=== PATIENT | female | born 1985 | race Caucasian/White ===

== ENCOUNTER 2017-07-02 14:35 | Emergency (ER) | payer BC ==
[2017-07-02 15:28] VITALS: BP 133/73
--- NOTE | 2017-07-02 15:30 | UC ---
Respiratory Complaint HPI - HPI Summary HPI Summary: 6 days of bronchial cough, fatigue, no real fevers, coughing hurts center of chest - History of Current Complaint Chief Complaint: UCRespiratory Stated Complaint: COUGH Time Seen by Provider: 07/02/17 15:23 Hx Obtained From: Patient Hx Last Menstrual Period: ON DEPO, DOES NOT HAVE REG PERIODS ?: No Onset/Duration: Gradual Onset, Lasting Days - 6, Still Present Timing: Constant Severity Initially: Moderate Severity Currently: Moderate Character: Cough: Nonproductive Aggravating Factors: Nothing Alleviating Factors: Nothing Associated Signs And Symptoms: Positive: Chills, Pleuritic Chest Pain, URI - Allergies/Home Medications Allergies/Adverse Reactions: Allergies Allergy/AdvReac Type Severity Reaction Status Date / Time No Known Allergies Allergy Verified 07/02/17 15:28 Home Medications: Home Medications Etonogestrel [Nexplanon] 07/02/17 [History] PMH/Surg Hx/FS Hx/Imm Hx Previously Healthy: No Psychological History: Depression - Surgical History Surgical History: Yes Surgery Procedure, Year, and Place: Appy and bariatric surgery 11/2011 - Family History Known Family History: Positive: Diabetes Negative: Cardiac Disease, Hypertension - Social History Occupation: Employed Full-time Lives: With Family Alcohol Use: Rare Substance Use Type: None Smoking Status (MU): Light Every Day Tobacco Smoker Amount Used/How Often: / PPD Cessation Counseling: Patient Advised to Stop Review of Systems Constitutional: Chills, Fatigue Skin: Negative Eyes: Negative ENT: Sore Throat, Nasal Discharge Respiratory: Cough Cardiovascular: Negative Gastrointestinal: Negative Genitourinary: Negative Motor: Negative Neurovascular: Negative Musculoskeletal: Negative Neurological: Negative Psychological: Negative Is Patient Immunocompromised?: No All Other Systems Reviewed And Are Negative: Yes Physical Exam Triage Information Reviewed: Yes Appearance: Well-Appearing, No Pain Distress, Well-Nourished Vital Signs Reviewed: Yes Eye Exam: Normal Eyes: Positive: Conjunctiva Clear ENT Exam: Normal ENT: Positive: Normal ENT inspection, Hearing grossly normal, Pharynx normal, Nasal congestion, TMs normal, Uvula midline. Negative: Nasal drainage, Trismus , Muffled voice, Hoarse voice, Dental tenderness, Sinus tenderness Dental Exam: Normal Neck exam: Normal Neck: Positive: Supple, Nontender, No Lymphadenopathy Respiratory Exam: Normal Respiratory: Positive: Chest non-tender, Lungs clear, Normal breath sounds, No respiratory distress, No accessory muscle use Cardiovascular Exam: Normal Cardiovascular: Positive: RRR, No Murmur, Pulses Normal, Brisk Capillary Refill Musculoskeletal Exam: Normal Musculoskeletal: Positive: Strength Intact, ROM Intact, No Edema Neurological Exam: Normal Neurological: Positive: Alert, Muscle Tone Normal Psychological Exam: Normal Skin Exam: Normal Respiratory Course/Dx - Course Course Of Treatment: increase fluids tessalon, zithromax follow with pcp prn - Differential Dx/Diagnosis Provider Diagnoses: Bronchitis Discharge - Discharge Plan Condition: Stable Disposition: HOME Prescriptions: Azithromycin TAB* [Zithromax TAB (Z-SATNAM) 250 mg #6 tabs] 2 tab PO .TODAY, THEN 1 DAILY #1 satnam Benzonatate CAP* [Tessalon 100 MG CAP*] 100 mg PO TID PRN #30 cap PRN Reason: Cough Patient Education Materials: Acute Bronchitis (ED) Referrals: Ju Araiza MD [Primary Care Provider] - If Needed
== END 2017-07-02 15:54 | disposition home or self-care (01) ==
LOC: UCCORT 14:35
DX: J40 Bronchitis, not specified as acute or chronic (principal)
CPT/HCPCS: 99212; G0463

== ENCOUNTER 2017-08-05 15:10 | Emergency (ER) | payer BC ==
[2017-08-05 16:01] VITALS: BP 153/107
[2017-08-05] MEDS ORDERED: diPHENhydraMINE PO* 25 MG PO ONE (16:45)
[2017-08-05] MEDS ORDERED: Ketorolac INJ* 30 MG/ML 1 ML VIAL IM ONE (16:45)
[2017-08-05] MEDS ORDERED: Prochlorperazine TAB* 10 MG PO ONE (16:45)
[2017-08-05] MEDS ORDERED: Metoclopramide TAB* 10 MG PO ONE (16:49)
--- NOTE | 2017-08-05 16:57 | UC ---
Vandana Carson Julia, scribed for Erich Arce MD on 08/05/17 at 1641 . Headache HPI - HPI Summary HPI Summary: This patient is a 31 year old F presenting to [facility] [place] with a chief complaint of constant occipital migraine since 08/02/17. She reports mild posterior neck pain. Patient denies this is her worst headache, vision changes or fever. The patient rates the pain 9/10 in severity. Symptoms aggravated by lights and neck extension. Patient states symptoms are similar to previous migraines. Has not found an oral medication that relieves these symptoms. Previous use of IV cocktails have worked. - History Of Current Complaint Chief Complaint: UCHeadache Stated Complaint: HEADACHE Time Seen by Provider: 08/05/17 16:29 Hx Obtained From: Patient Hx Last Menstrual Period: unknown Onset/Duration: Gradual Onset, Lasting Days Onset Of Symptoms: Gradual, Still Present Currently Pain Is: Current Pain Scale(0-10)= - 9 Pain Intensity: 9 Pain Scale Used: 0-10 Numeric Timing: Constant Location of Headache: Occipital Aggravating Factor(s): Bright Lights, Other - neck extension Allevating Factor(s): Nothing Associated Signs And Symptoms: Positive: Negative - Allergies/Home Medications Allergies/Adverse Reactions: Allergies Allergy/AdvReac Type Severity Reaction Status Date / Time No Known Allergies Allergy Verified 08/05/17 15:54 Home Medications: Home Medications Acetaminophen [Acetaminophen Extra Strength] 1,000 mg PO ONCE 08/05/17 [History Confirmed 08/05/17] PMH/Surg Hx/FS Hx/Imm Hx - Additional Past Medical History Additional PMH: Patient denies . She states she has Nexplanon implant. Previously Healthy: Yes - Surgical History Surgical History: Yes Surgery Procedure, Year, and Place: Appy and bariatric surgery 11/2011 - Family History Known Family History: Positive: Diabetes Negative: Cardiac Disease, Hypertension - Social History Alcohol Use: Occasionally Substance Use Type: None Smoking Status (MU): Light Every Day Tobacco Smoker Amount Used/How Often: 1/4 PPD - Immunization History Most Recent Influenza Vaccination: none Review of Systems Constitutional: Negative Eyes: Negative Neurological: Headache All Other Systems Reviewed And Are Negative: Yes Physical Exam Triage Information Reviewed: Yes Vital Signs: Initial Vital Signs Temp 98.6 F 08/05/17 15:56 Pulse 72 08/05/17 15:56 Resp 14 08/05/17 15:56 BP 153/107 08/05/17 15:56 Pulse Ox 100 08/05/17 15:56 Vital Signs Reviewed: Yes - Additional Comments Appearance: Well-appearing, Well-nourished Skin: Warm Neck: Supple, nontender, Neurological: Normal, A&Ox3, negative Hardings and Brudzinskis test General: No acute distress Headache Course/Dx - Course Course Of Treatment: given 1 dose of meds and prescription for short course, instructed to use caution taking meds together with her home Prozac. Also instrcuted to fu with neurologist within 1 week for further mgmt of mirgraines. no neuro def. agrees to and understands dc instructions. - Differential Dx/Diagnosis Provider Diagnoses: headache Discharge - Discharge Plan Condition: Stable Disposition: HOME Prescriptions: diPHENhydraMINE PO* [Benadryl PO 25 MG TAB*] 25 mg PO TID PRN #6 tab PRN Reason: Headache/Pain Prochlorperazine TAB* [Compazine Tab*] 5 mg PO TID #6 tab Patient Education Materials: Migraine Headache (ED) Referrals: Ju Araiza MD [Primary Care Provider] - Doug Newell MD [Medical Doctor] - Additional Instructions: PLEASE MAKE AN APPOINTMENT WITH NEUROLOGIST TO BE SEEN WITHIN 1-2 WEEKS PLEASE TAKE MEDICATIONS DIRECTED PLEASE SEEK MEDICAL ATTENTION IMMEDIATELY IF YOU HAVE ANY WORSENING OR CONCERNING SYMPTOMS PLEASE MAKE AN APPOINTMENT TO BE SEEN BY YOUR PRIMARY CARE DOCTOR WITHIN 1 WEEK The documentation as recorded by the Vandana casey Julia accurately reflects the service I personally performed and the decisions made by me, Erich Arce MD.
[2017-08-05] MEDS ORDERED: diPHENhydraMINE PO* 25 MG ONE (17:06)
== END 2017-08-05 17:25 | disposition home or self-care (01) ==
LOC: UCEAST 15:10
DX: R51 Headache (principal); M54.2 Cervicalgia; F17.210 Nicotine dependence, cigarettes, uncomplicated
CPT/HCPCS: 99212; A9270-GY; G0463; J1885; Q0164

== ENCOUNTER 2017-08-20 09:42 | Emergency (ER) | payer BC ==
[2017-08-20 10:16] VITALS: BP 129/88
[2017-08-20] MEDS ORDERED: Ondansetron ODT TAB* 4 MG PO ONE (10:41)
[2017-08-20] MEDS ORDERED: Ketorolac INJ* 30 MG/ML 1 ML VIAL IM ONE (10:41)
--- NOTE | 2017-08-20 10:42 | UC ---
Headache HPI - HPI Summary HPI Summary: 31 YO FEMALE WITH THE ONSET OF HER TYPICAL MIGRAINE YESTERDAY NAUSEA AND PHOTOPHOBIA HAS APPT IN ABOUT A WEEK WITH NEUROLOGIST UNABLE TO TAKE ORAL NSAIDS DUE TOGASTRIC BYPASS HAS BENADRYL AND ZOFRAN AT HOME ABOUT A YR AND A HALF AGO HER MIGRAINES INCREASED IN FREQUENCY SHE HAD A CT OF BRAIN AT THAT TIME (-) - History Of Current Complaint Chief Complaint: UCHeadache Stated Complaint: HEADACHE Time Seen by Provider: 08/20/17 10:32 Hx Obtained From: Patient Hx Last Menstrual Period: IUD Onset/Duration: Gradual Onset, Lasting Hours Onset Of Symptoms: Gradual Initially Headache Was: Severe Currently Pain Is: Severe Pain Intensity: 8 Pain Scale Used: 0-10 Numeric Timing: Constant Character: Throbbing, Typical Headache Location of Headache: Occipital Aggravating Factor(s): Nothing Allevating Factor(s): Nothing Associated Signs And Symptoms: Positive: Nausea, Neck Pain Related History: Similar Episode/DX As: - MIGRAINE - Allergies/Home Medications Allergies/Adverse Reactions: Allergies Allergy/AdvReac Type Severity Reaction Status Date / Time No Known Allergies Allergy Verified 08/20/17 10:11 PMH/Surg Hx/FS Hx/Imm Hx Previously Healthy: Yes Neurological History: Migraine Psychological History: Depression - Surgical History Surgical History: Yes Surgery Procedure, Year, and Place: Appy and bariatric surgery 11/2011 - Family History Known Family History: Positive: Diabetes, Other - FHx: MIGRAINES Negative: Cardiac Disease, Hypertension - Social History Alcohol Use: Occasionally Substance Use Type: None Smoking Status (MU): Light Every Day Tobacco Smoker Amount Used/How Often: 5 cig/day - Immunization History Most Recent Influenza Vaccination: none Review of Systems Constitutional: Negative Skin: Negative Eyes: Negative ENT: Negative Respiratory: Negative Cardiovascular: Negative Gastrointestinal: Nausea Genitourinary: Negative Motor: Negative Neurovascular: Negative Musculoskeletal: Negative Neurological: Headache Psychological: Negative Is Patient Immunocompromised?: No All Other Systems Reviewed And Are Negative: Yes Physical Exam Triage Information Reviewed: Yes Appearance: Well-Appearing, No Pain Distress, Well-Nourished Vital Signs: Initial Vital Signs Temp 98.3 F 08/20/17 10:13 Pulse 81 08/20/17 10:13 Resp 16 08/20/17 10:13 BP 129/88 08/20/17 10:13 Pulse Ox 100 08/20/17 10:13 Vital Signs Reviewed: Yes Eyes: Positive: Conjunctiva Clear, Other: - EOMI/PERRL, FUNDI BENIGN ENT: Positive: Hearing grossly normal. Negative: Nasal congestion, Nasal drainage, Trismus, Muffled voice, Hoarse voice, Dental tenderness Neck: Positive: Supple, Nontender, No Lymphadenopathy Respiratory: Positive: Lungs clear, Normal breath sounds, No respiratory distress, No accessory muscle use Cardiovascular: Positive: RRR, No Murmur Musculoskeletal: Positive: ROM Intact, No Edema Neurological: Positive: Alert, Other: - CN2-12 INTACT, GCS 15/15, NORMAL GAIT, NONFOCAL EXAM Psychological Exam: Normal Skin Exam: Normal Headache Course/Dx - Differential Dx/Diagnosis Provider Diagnoses: ACUTE HEADACHE. SUSPECT MIGRAINE Discharge - Discharge Plan Condition: Stable Disposition: HOME Patient Education Materials: Migraine Headache (ED) Forms: *Work Release Referrals: Ju Araiza MD [Primary Care Provider] - Additional Instructions: SEE NEUROLOGIST PLANNED RECHECK FOR NEW OR WORSENING HEADACHE
== END 2017-08-20 11:05 | disposition home or self-care (01) ==
LOC: UCEAST 09:42
DX: R51 Headache (principal); R11.0 Nausea; F32.9 Major depressive disorder, single episode, unspecified; F17.210 Nicotine dependence, cigarettes, uncomplicated
CPT/HCPCS: 96372; 99212; A9270-GY; G0463; J1885

== ENCOUNTER 2017-09-03 13:30 | Emergency (ER) | payer BC ==
[2017-09-03 14:31] VITALS: BP 134/79
[2017-09-03] MEDS ORDERED: Ketorolac INJ* 30 MG/ML 1 ML VIAL IM ONE (14:38)
--- NOTE | 2017-09-03 14:43 | UC ---
Lower Extremity/Ankle HPI - HPI Summary HPI Summary: 31 yo female with atraumatic left great toe pain onset after a walk painful with with wt bearing/movement no hx gout unable to take NSAIDs orally due to gastric bypass - History of Current Complaint Chief Complaint: UCLowerExtremity Stated Complaint: LFT BIG TOE INJURY Time Seen by Provider: 09/03/17 14:30 Hx Obtained From: Patient Hx Last Menstrual Period: nexplanon Onset/Duration: Gradual Onset, Lasting Days Severity Initially: Moderate Severity Currently: Moderate Pain Intensity: 7 Pain Scale Used: 0-10 Numeric Aggravating Factor(s): Standing, Ambulation Alleviating Factor(s): Rest, Elevation Able to Bear Weight: Yes - Allergies/Home Medications Allergies/Adverse Reactions: Allergies Allergy/AdvReac Type Severity Reaction Status Date / Time No Known Allergies Allergy Verified 09/03/17 14:31 PMH/Surg Hx/FS Hx/Imm Hx Previously Healthy: Yes Neurological History: Migraine - Surgical History Surgical History: Yes Surgery Procedure, Year, and Place: [facility]y and bariatric surgery 11/2011 - Family History Known Family History: Positive: Diabetes, Other - FHx: MIGRAINES Negative: Cardiac Disease, Hypertension - Social History Alcohol Use: Occasionally Substance Use Type: None Smoking Status (MU): Light Every Day Tobacco Smoker Amount Used/How Often: 5 cig/day - Immunization History Most Recent Influenza Vaccination: none Review of Systems Constitutional: Negative Skin: Negative Eyes: Negative ENT: Negative Respiratory: Negative Cardiovascular: Negative Gastrointestinal: Negative Genitourinary: Negative Motor: Negative Neurovascular: Negative Musculoskeletal: Arthralgia Neurological: Negative Psychological: Negative Is Patient Immunocompromised?: No All Other Systems Reviewed And Are Negative: Yes Physical Exam Triage Information Reviewed: Yes Appearance: Well-Appearing, No Pain Distress, Well-Nourished Vital Signs: Initial Vital Signs Temp 98.3 F 09/03/17 14:27 Pulse 75 09/03/17 14:27 Resp 16 09/03/17 14:27 BP 134/79 09/03/17 14:27 Pulse Ox 100 09/03/17 14:27 Vital Signs Reviewed: Yes Eyes: Positive: Conjunctiva Clear ENT: Positive: Hearing grossly normal. Negative: Nasal congestion, Nasal drainage, Trismus, Muffled voice, Hoarse voice Neck: Positive: Supple, Nontender Respiratory: Positive: Lungs clear, Normal breath sounds, No respiratory distress, No accessory muscle use Cardiovascular: Positive: RRR, No Murmur Musculoskeletal: Positive: Other: - see image Neurological: Positive: Alert Psychological Exam: Normal Skin Exam: Normal Diagnostics - Radiology No standard instances Xray Interpretation: No Acute Changes Radiology Interpretation Completed By: Radiologist Lower Extremity Course/Dx - Course Course Of Treatment: despite negative XR read I am suspicious that pt has a sesamoid fx - Differential Dx/Diagnosis Provider Diagnoses: sesamoid fracture left great toe Discharge - Discharge Plan Condition: Stable Disposition: HOME Patient Education Materials: Swollen Joint (ED) Referrals: Artem Salmeron MD [Medical Doctor] - As Soon As Possible Additional Instructions: see orthopedist you may need an MRI to rule in or rule out a sesamoid boen fracture of the left great toe post op shoe crutches Images Feet (Multiple View): 1 - tender/swollen/limited ROM
--- NOTE | 2017-09-03 15:08 | RAD ---
Indication: Left great toe injury. 3 views of left great toe demonstrates no fracture. No other bone or joint abnormality is noted. IMPRESSION: No fracture of the left great toe is noted.
== END 2017-09-03 15:43 | disposition home or self-care (01) ==
LOC: UCCORT 13:30
DX: S92.812A Other fracture of left foot, initial encounter for closed fracture (principal); X50.3XXA Overexertion from repetitive movements, initial encounter; Y93.01 Activity, walking, marching and hiking; Y92.9 Unspecified place or not applicable; F17.210 Nicotine dependence, cigarettes, uncomplicated
CPT/HCPCS: 99213; G0463; J1885